=== PATIENT | female | born 1975 | race Caucasian/White ===

== ENCOUNTER 2016-06-21 06:18 | Emergency (ER) | payer SELFPAY ==
[2016-06-21 06:25] VITALS: BP 110/63
--- NOTE | 2016-06-21 07:49 | ER Document Report ---
ED Skin Rash/Insect Bite/Abscs - General Mode of Arrival: Ambulatory Information source: Patient TRAVEL OUTSIDE OF THE [place] IN LAST 30 DAYS: No - HPI Patient complains to provider of: Skin rash/lesion Onset: Last week Quality of pain: Burning - General Chief Complaint: Rash Stated Complaint: RASH Notes: Patient is a 41 year old female who presents to the emergency department complaining of a rash onset one week ago. Patient reports the rash is located on the right side of her face and on her upper back and is not healing. Patient complains that the red bumps are painful, burn, and leak water. Patient also states that her boyfriend has the same rash on his back. (GARRETT BARRERA) - Related Data Allergies/Adverse Reactions: No Known Allergies Allergy (Verified 06/21/16 06:28) Past Medical History - General Information source: Patient - Social History Smoking Status: Current Every Day Smoker Chew tobacco use (# tins/day): No Frequency of alcohol use: None Drug Abuse: None Family History: Reviewed & Not Pertinent Patient has suicidal ideation: No Patient has homicidal ideation: No Pulmonary Medical History: Reports: Hx COPD Renal/ Medical History: Reports: Hx Ectopic GI Medical History: Reports: Hx Hepatitis - C Psychiatric Medical History: Reports: Hx Anxiety, Hx Attention Deficit Hyperactivity Disorder, Hx Depression Infectious Medical History: Reports: Hx Hepatitis - C Past Surgical History: Reports: Hx Breast Surgery - augmentation/implants - Immunizations Immunizations up to date: Yes Hx Diphtheria, Pertussis, Tetanus Vaccination: Yes Review of Systems - Review of Systems Constitutional: No symptoms reported EENT: No symptoms reported Cardiovascular: No symptoms reported Respiratory: No symptoms reported Gastrointestinal: No symptoms reported Genitourinary: No symptoms reported Female Genitourinary: No symptoms reported Musculoskeletal: No symptoms reported Skin: See HPI, Rash Hematologic/Lymphatic: No symptoms reported Neurological/Psychological: No symptoms reported -: Yes All other systems reviewed and negative Physical Exam - Vital signs Interpretation: Normal - General General appearance: Appears well, Alert - HEENT Head: Normocephalic, Atraumatic - Respiratory Respiratory status: No respiratory distress - Extremities General upper extremity: Normal inspection, Normal ROM, Normal strength General lower extremity: Normal inspection, Normal ROM, Normal strength, Normal weight bearing - Neurological Neuro grossly intact: Yes Cognition: Normal Orientation: AAOx4 [place] Coma Scale Eye Opening: Spontaneous [place] Coma Scale Verbal: Oriented [place] Coma Scale Motor: Obeys Commands [place] Coma Scale Total: 15 Speech: Normal Motor strength normal: LUE, RUE, LLE, RLE - Psychological Associated symptoms: Normal affect, Normal mood - Skin Skin Temperature: Warm Skin Moisture: Dry Skin irregularity: Rash - Rash on face is reddish, firm, tender, and appears to have been scratched. Patient's back has red, slightly raised, indurated, and tender bumps that look like folliculitis that has not abscessed yet. - Vital signs Vitals: Temp Pulse Resp BP Pulse Ox 98.6 F 98 12 110/63 100 06/21/16 06:23 06/21/16 06:23 06/21/16 06:23 06/21/16 06:23 06/21/16 06:23 (JAREN LEES) (GARRETT BARRERA) Discharge - Discharge Clinical Impression: Folliculitis Additional Instructions: Folliculitis: You have a skin infection that looks like folliculitis. This occurs when bacteria infect the hair follicles of the skin. Typically, redness and small pustules are found where hair shafts enter the skin. Allergy, surface irritation, shaving, and exposure to hot tubs predispose to folliculitis. The usual treatment is antibiotics. Warm compresses are often used. To avoid future episodes of folliculitis, you must identify (if possible) the factors which allowed this infection to start. If you develop increasing pain, swelling, fever, or red streaks, call the doctor or return for re-evaluation. TAKE THE MEDICATIONS PRESCRIBED. TRY BENADRYL FOR ITCHING. FOLLOW UP WITH A LOCAL MEDICAL DOCTOR IF NOT IMPROVING. Prescriptions: Doxycycline Hyclate 100 mg PO BID #20 tablet Scribe Attestation: 06/21/16 07:53 I personally performed the services described in the documentation, reviewed and edited the documentation which was dictated to the scribe in my presence, and it accurately records my words and actions. (JAREN LEES) Scribe Documentation - Scribe Written by Scribe:: BRIANDA LUNDYIBE 06/21/16 0807 Acting as scribe for: Dr. Lees (GARRETT BARRERA)
== END 2016-06-21 08:10 | disposition home or self-care (01) ==
LOC: ER 06:18
DX: L73.9 Follicular disorder, unspecified (principal); F17.200 Nicotine dependence, unspecified, uncomplicated; J44.9 Chronic obstructive pulmonary disease, unspecified
CPT/HCPCS: 99282

== ENCOUNTER 2016-07-23 00:39 | Emergency (ER) | payer SELFPAY ==
[2016-07-23 01:14] VITALS: BP 120/61
--- NOTE | 2016-07-23 04:33 | ER Document Report ---
ED Skin Rash/Insect Bite/Abscs - General Chief Complaint: Rash Stated Complaint: ANKLE,FOOT SWOLLEN/RASH Notes: Patient is a 41-year-old female that comes emergency department for chief complaint of a rash over her forehead, side of her face, and shoulders mainly that has been present for over a month intermittently, she states that areas are now healing and itching, she states new areas appear to be coming up. She also states that she has a reddish appearance of her lower extremities which are slightly tender in appearance. Past medical history of hepatitis C. Patient has been on doxycycline but states this did not agree with her stomach and she had difficulty taking it. TRAVEL OUTSIDE OF THE [place] IN LAST 30 DAYS: No - Related Data Allergies/Adverse Reactions: No Known Allergies Allergy (Verified 06/21/16 06:28) Past Medical History - General Information source: Patient - Social History Smoking Status: Never Smoker Frequency of alcohol use: None Drug Abuse: None Lives with: Family Family History: Reviewed & Not Pertinent Patient has suicidal ideation: No Patient has homicidal ideation: No Pulmonary Medical History: Reports: Hx COPD Renal/ Medical History: Reports: Hx Ectopic . Denies: Hx Peritoneal Dialysis GI Medical History: Reports: Hx Hepatitis - C Psychiatric Medical History: Reports: Hx Anxiety, Hx Attention Deficit Hyperactivity Disorder, Hx Depression Infectious Medical History: Reports: Hx Hepatitis - C Past Surgical History: Reports: Hx Breast Surgery - augmentation/implants - Immunizations Immunizations up to date: Yes Hx Diphtheria, Pertussis, Tetanus Vaccination: Yes Review of Systems - Review of Systems Constitutional: No symptoms reported EENT: No symptoms reported Cardiovascular: No symptoms reported Respiratory: No symptoms reported Gastrointestinal: No symptoms reported Genitourinary: No symptoms reported Female Genitourinary: No symptoms reported Musculoskeletal: No symptoms reported Skin: See HPI Hematologic/Lymphatic: No symptoms reported Neurological/Psychological: No symptoms reported Physical Exam - Vital signs Vitals: Temp Pulse Resp BP Pulse Ox 97.9 F 100 18 120/61 100 07/23/16 01:13 07/23/16 01:13 07/23/16 01:13 07/23/16 01:13 07/23/16 01:13 Interpretation: Normal - General General appearance: Appears well, Alert In distress: None - HEENT Head: Normocephalic, Atraumatic Eyes: Normal Pupils: PERRL - Respiratory Respiratory status: No respiratory distress Chest status: Nontender Breath sounds: Normal Chest palpation: Normal - Cardiovascular Rhythm: Regular Heart sounds: Normal auscultation Murmur: No - Abdominal Inspection: Normal Distension: No distension Bowel sounds: Normal Tenderness: Nontender Organomegaly: No organomegaly - Back Back: Normal, Nontender - Extremities General upper extremity: Normal inspection, Nontender, Normal color, Normal ROM , Normal temperature General lower extremity: Normal inspection, Nontender, Normal color, Normal ROM , Normal temperature, Normal weight bearing. No: Iris's sign - Neurological Neuro grossly intact: Yes Cognition: Normal Orientation: AAOx4 [place] Coma Scale Eye Opening: Spontaneous [place] Coma Scale Verbal: Oriented [place] Coma Scale Motor: Obeys Commands [place] Coma Scale Total: 15 Speech: Normal Motor strength normal: LUE, RUE, LLE, RLE Sensory: Normal - Psychological Associated symptoms: Normal affect, Normal mood - Skin Skin Temperature: Warm Skin Moisture: Dry Skin Color: Normal Skin irregularity: other - erythematous and slightly elevated circular areas over the forehead, no vesicles, pustules, induration, fluctuance. Some excoriation, a few healing scabs. Mild erythema over the shoulders, no significant abnormality. Lower extremity with a few patchy reddish areas, otherwise unremarkable Course - Re-evaluation Re-evalutation: Area over the face appears to be infectious/bacterial to some degree with no fluctuance or induration suggesting abscess, questionable lower extremity vasculitis which is very mild, no other abnormalities noted. Patient referred to dermatology. - Vital Signs Vital signs: Temp Pulse Resp BP Pulse Ox 97.9 F 100 18 120/61 100 07/23/16 01:13 07/23/16 01:13 07/23/16 01:13 07/23/16 01:13 07/23/16 01:13 Discharge - Discharge Clinical Impression: Rash, Skin infection Condition: Stable Disposition: HOME, SELF-CARE Additional Instructions: Physical examination suggests infectious component on the face/shoulder, lower extremity appears to be possible vasculitis. Use the ointment as directed, take Bactrim as directed, follow up with dermatology for additional management. Return to emergency department for any concerning or worsening symptoms. Prescriptions: Mupirocin [Bactroban 2% Ointment 22 gm] 1 applic TP TID #1 tube Sulfamethoxazole/Trimethoprim [Bactrim Ds Tablet] 1 each PO BID #14 tablet Referrals: ARLYN HEATH DO [ACTIVE STAFF] - Follow up as needed
== END 2016-07-23 05:19 | disposition home or self-care (01) ==
LOC: ER 00:39
DX: R21 Rash and other nonspecific skin eruption (principal); L08.9 Local infection of the skin and subcutaneous tissue, unspecified; J44.9 Chronic obstructive pulmonary disease, unspecified
CPT/HCPCS: 99282

== ENCOUNTER 2016-08-22 12:30 | Emergency (ER) | payer SELFPAY ==
--- NOTE | 2016-08-22 12:50 | ER Document Report ---
ED Medical Screen (RME) - General Stated Complaint: FEVER, THROAT PAIN Time seen by provider: 12:48 Mode of Arrival: Ambulatory Information source: Patient Notes: 41-year-old female presents to ED for swelling to the hands and feet for a while. She states she's had fever cough cold bodyaches since Friday with a sore throat. She states she is having flulike symptoms. Last menstrual period 08/01/2016 I have greeted and performed a rapid initial assessment of this patient. A comprehensive ED assessment and evaluation of the patient, analysis of test results and completion of medical decision making process will be conducted by an additional ED providers. TRAVEL OUTSIDE OF THE [place] IN LAST 30 DAYS: No - Related Data Allergies/Adverse Reactions: No Known Allergies Allergy (Verified 06/21/16 06:28) Past Medical History Pulmonary Medical History: Reports: Hx COPD Renal/ Medical History: Reports: Hx Ectopic . Denies: Hx Peritoneal Dialysis GI Medical History: Reports: Hx Hepatitis - C Psychiatric Medical History: Reports: Hx Anxiety, Hx Attention Deficit Hyperactivity Disorder, Hx Depression Infectious Medical History: Reports: Hx Hepatitis - C Past Surgical History: Reports: Hx Breast Surgery - augmentation/implants - Immunizations Immunizations up to date: Yes Hx Diphtheria, Pertussis, Tetanus Vaccination: Yes Physical Exam - Vital signs Vitals: Temp Pulse Resp BP Pulse Ox 99.5 F 112 H 16 103/60 98 08/22/16 12:44 08/22/16 12:44 08/22/16 12:44 08/22/16 12:44 08/22/16 12:44 Course - Vital Signs Vital signs: Temp Pulse Resp BP Pulse Ox 99.5 F 112 H 16 103/60 98 08/22/16 12:44 08/22/16 12:44 08/22/16 12:44 08/22/16 12:44 08/22/16 12:44
--- NOTE | 2016-08-22 14:25 | ER Document Report ---
ED General - General Chief Complaint: Sore Throat Stated Complaint: FEVER, THROAT PAIN Mode of Arrival: Ambulatory Information source: Patient Notes: Patient is a 41-year-old female who presents with 4 day history of fever (Tmax 100.2), sore throat productive cough with mucus production, bilateral ear pain. She also reports her hands and feet are swelling. Denies any nausea vomiting diarrhea or dysuria. She has tried [id number] cold and flu medications and Tylenol. These have not provided relief. She is a smoker. TRAVEL OUTSIDE OF THE [place] IN LAST 30 DAYS: No - Related Data Allergies/Adverse Reactions: No Known Allergies Allergy (Verified 08/22/16 12:50) Past Medical History - General Information source: Patient - Social History Smoking Status: Current Every Day Smoker Chew tobacco use (# tins/day): No Frequency of alcohol use: None Drug Abuse: None Family History: Reviewed & Not Pertinent Patient has suicidal ideation: No Patient has homicidal ideation: No Pulmonary Medical History: Reports: Hx COPD Renal/ Medical History: Reports: Hx Ectopic . Denies: Hx Peritoneal Dialysis GI Medical History: Reports: Hx Hepatitis - C Psychiatric Medical History: Reports: Hx Anxiety, Hx Attention Deficit Hyperactivity Disorder, Hx Depression Infectious Medical History: Reports: Hx Hepatitis - C Past Surgical History: Reports: Hx Breast Surgery - augmentation/implants - Immunizations Immunizations up to date: Yes Hx Diphtheria, Pertussis, Tetanus Vaccination: Yes Review of Systems - Review of Systems Constitutional: See HPI EENT: See HPI Cardiovascular: No symptoms reported Respiratory: See HPI Gastrointestinal: No symptoms reported Genitourinary: No symptoms reported Female Genitourinary: No symptoms reported Musculoskeletal: No symptoms reported Skin: No symptoms reported Hematologic/Lymphatic: No symptoms reported Neurological/Psychological: No symptoms reported Physical Exam - Vital signs Vitals: Temp Pulse Resp BP Pulse Ox 99.5 F 112 H 16 103/60 98 08/22/16 12:44 08/22/16 12:44 08/22/16 12:44 08/22/16 12:44 08/22/16 12:44 Interpretation: Tachycardic - Notes Notes: PHYSICAL EXAM: CONSTITUTIONAL: Alert and oriented, well-appearing and in no acute distress. non -toxic in appearance. HENT: Normocephalic, atraumatic. Ear canals without erythema or foreign body, TMs pearly oliva with good bony landmarks. Nares clear without erythema, septal hematoma or deviation, airway patent. Oropharynx clear without erythema, tonsilar exudate or malocclusion. Trachea midline. Uvula midline. Moist mucous membranes. EYES: Pupils equal round and reactive to light, EOM intact. Sclera anicteric, conjunctiva are normal. No entrapment. NECK: supple without lymphadenopathy. No midline tenderness or paraspinous muscle spasms. No step-offs or deformities. ROM intact. HEART: Regular rate and rhythm without murmurs. LUNGS: CTAB and equal. No wheezes, rales or rhonchi. GI: Normactive bowel sounds. Nontender, non-distended. No organomegaly. no CVAT. EXTREMITIES: Normal range of motion, no pitting edema. No cyanosis. Cap Refill < 3 seconds. NEURO: Cranial nerves grossly intact. Normal sensory/motor exams. PSYCH: Normal mood, normal affect. SKIN: Warm and dry. Normal turgor. No rashes or lesions noted. Course - Re-evaluation Re-evalutation: 08/22/16 14:53 Patient seen and examined. No respiratory distress, non-toxic in appearance. Exam consistent with viral URI, lungs CTAB. Negative influenza and rapid strep swabs. Will treat symptomatically. Discharged home in stable condition, follow- up with PMD. - Vital Signs Vital signs: Temp Pulse Resp BP Pulse Ox 99.5 F 112 H 16 103/60 98 08/22/16 12:44 08/22/16 12:44 08/22/16 12:44 08/22/16 12:44 08/22/16 12:44 Discharge - Discharge Clinical Impression: Viral URI with cough Condition: Stable Disposition: HOME, SELF-CARE Additional Instructions: UPPER RESPIRATORY ILLNESS: You have a viral infection of the respiratory passages -- a "cold." This common infection causes nasal congestion, drainage, and often sore throat and cough. It is highly contagious. The disease usually lasts about 10 to 14 days. There is no "cure" for the viral infection -- it must run its course. If there is a complication, such as bacterial infection in the nose, sinuses, middle ear, or bronchial tubes, antibiotics may be required. The antibiotics won't affect the virus. Drink plenty of fluids. A humidifier may help. An expectorant medication or decongestant may make you more comfortable. Use acetaminophen or ibuprofen for fever or aches. See the doctor if fever persists over two days, if there is any significant worsening of your symptoms, or if you simply fail to improve as expected. BRONCHOSPASM: You have tightness in the bronchial tubes, called bronchospasm. This often occurs with bronchial infections. Allergies, inhaled chemicals, and polluted or cold air can also provoke bronchospasm. It's more likely in patients with asthma in the family. Emergency treatment of bronchospasm may include adrenaline shots or bronchodilator aerosol. You may feel lightheaded and have a rapid pulse for an hour or two. Rest and get plenty of fluids. At home, we'll treat you with a bronchodilator inhaler. Antibiotics and corticosteroids may be required for some patients. Until you recover, avoid chemical fumes, dusts, pollens, and exercising in very cold or dry air. If you smoke, stop now!! If you develop a fever, increased wheezing, chest pain, or severe shortness of breath, you should contact the doctor immediately. DECONGESTANT MEDICATION: A decongestant medicine has been prescribed. Often this medicine is combined in the same tablet with an antihistamine or expectorant. This type of medicine is helpful in treating a bad cold or sinus condition, as well as in treatment of the nasal congestion of hay fever. It is not of much benefit for lung infections. Decongestant medicines are related to stimulants. They can cause an increase in blood pressure and heart rate. Persons with heart disease and high blood pressure should not take decongestants without discussing this with the physician. If you develop palpitations, chest pain, headache, or tremors, stop the medicine and consult your physician. COUGH-SUPPRESSANT & EXPECTORANT MEDICATION: You are to use a cough medication as needed for relief of symptoms. This medicine is a combination of an expectorant (to make the mucous thinner and more easily "coughed up") and a cough suppressant (to reduce the frequency of coughing). The cough-suppressant medicine is related to narcotics. You may experience mild nausea and sleepiness. Some patients who are very sensitive to narcotics may have stomach pain from this medicine. Taking the medicine with food reduces these side effects. Do not drive or work with machinery until you know how this medicine affects you. The expectorant should have no side effects. Iodine-containing expectorants (such as organidin) should not be taken by persons with active thyroid disease unless approved by your doctor. Call the doctor if you develop shortness of breath, hives, rash, itching, lightheadedness, or severe nausea and vomiting. USE OF ACETAMINOPHEN (Tylenol): Acetaminophen may be taken for pain relief or fever control. It's much safer than aspirin, offering a wider range of "safe" dosages. It is safe during . Some brand names are Tylenol, Panadol, Datril, Anacin 3, Tempra, and Liquiprin. Acetaminophen can be repeated every four hours. The following are maximum recommended dosages: >89 pounds or adults 650 mg to 900 mg Acetaminophen can be repeated every four hours. Maximum dose not to exceed 4000 mg a day. SMOKING: If you smoke, you should stop smoking. The tar and chemicals in cigarette smoke are harmful. Smoking has been shown to cause: emphysema chronic bronchitis lung cancer mouth and throat cancer stomach and pancreas cancer premature aging defects In addition, smoking increases ear and lung infections in children of smokers. Antibiotic Therapy You have been given an antibiotic prescription. It's important that you take all the medication, unless instructed otherwise by your physician. Failure to complete the entire course can result in relapse of your condition. Common side effects of antibiotics include nausea, intestinal cramping, or diarrhea. Women may develop vaginal yeast infections, and babies can get yeast (thrush) in the mouth following the use of antibiotics. Contact your physician if you develop significant side effects from this medication. Allergy to this antibiotic can result in hives, wheezing, faintness, or itching. If symptoms of allergy occur, stop the medication and call the doctor. FOLLOW-UP CARE: If you have been referred to a physician for follow-up care, call the physician s office for an appointment as you were instructed or within the next two days. If you experience worsening or a significant change in your symptoms, notify the physician immediately or return to the Emergency Department at any time for re-evaluation. Prescriptions: Pseudoephedrine HCl [Sudafed] 30 mg PO Q6HP PRN #8 tablet PRN Reason: Guaifenesin/D-Methorphan Hb [Guaifenesin-Dextromethorph Tab] 1 each PO Q12HP PRN #8 tab.sr.12h PRN Reason: Cough Albuterol Sulfate [Proair HFA Inhalation Aerosol 8.5 gm MDI] 2 puff IH Q4H PRN # 1 mdi PRN Reason: Amox Tr/Potassium Clavulanate [Augmentin 875-125 Tablet] 1 tab PO BID 10 Days Forms: Return to Work
[2016-08-22 15:17] VITALS: BP 115/64
== END 2016-08-22 15:17 | disposition home or self-care (01) ==
LOC: ER 12:30
DX: J06.9 Acute upper respiratory infection, unspecified (principal); B34.9 Viral infection, unspecified; R05 Cough; J02.9 Acute pharyngitis, unspecified; R50.9 Fever, unspecified; R07.0 Pain in throat; F17.200 Nicotine dependence, unspecified, uncomplicated
CPT/HCPCS: 87070; 87804; 87880; 99283

== ENCOUNTER 2017-05-30 10:55 | Emergency (ER) | payer SELFPAY ==
--- NOTE | 2017-05-30 12:10 | ER Document Report ---
ED General - General Mode of Arrival: Ambulatory Information source: Patient TRAVEL OUTSIDE OF THE U.S. IN LAST 30 DAYS: No <RUCHI SAGASTUME - Last Filed: 05/30/17 12:58> <ADRIEN PUENTES - Last Filed: 05/30/17 15:20> - General Chief Complaint: Headache Stated Complaint: HEADACHE,BODY ACHES Time Seen by Provider: 05/30/17 11:45 Notes: Patient is a 42 year old female with a history of Hepatitis C presents to the emergency department complaining of worsening fatigue, inability to sleep and bilateral lower extremity pain and swelling onset 3 months ago. Patient states that she has a hard time sleeping at night due to her leg pain. Patient is currently taking Subutex 10 mg daily. (RUCHI SAGASTUME) - Related Data Allergies/Adverse Reactions: No Known Allergies Allergy (Verified 05/30/17 10:56) Past Medical History - Social History Smoking Status: Current Every Day Smoker Chew tobacco use (# tins/day): No Frequency of alcohol use: None Drug Abuse: None Family History: Reviewed & Not Pertinent Patient has suicidal ideation: No Patient has homicidal ideation: No Pulmonary Medical History: Reports: Hx COPD Renal/ Medical History: Reports: Hx Ectopic . Denies: Hx Peritoneal Dialysis GI Medical History: Reports: Hx Hepatitis - C Psychiatric Medical History: Reports: Hx Anxiety, Hx Attention Deficit Hyperactivity Disorder, Hx Depression Infectious Medical History: Reports: Hx Hepatitis - C Past Surgical History: Reports: Hx Breast Surgery - augmentation/implants - Immunizations Immunizations up to date: Yes Hx Diphtheria, Pertussis, Tetanus Vaccination: Yes <RUCHI SAGASTUME - Last Filed: 05/30/17 12:58> Physical Exam <RUCHI SAGASTUME - Last Filed: 05/30/17 12:58> <ADRIEN PUENTES - Last Filed: 05/30/17 15:20> - Vital signs Vitals: Temp Pulse Resp BP Pulse Ox 98.8 F 86 20 108/60 99 05/30/17 11:06 05/30/17 11:06 05/30/17 11:06 05/30/17 11:06 05/30/17 11:06 - Notes Notes: GENERAL: Alert, interacts well. No acute distress. HEAD: Normocephalic, atraumatic. EYES: Pupils equal, round, and reactive to light. Extraocular movements intact. ENT: Oral mucosa moist, tongue midline. NECK: Full range of motion. Supple. Trachea midline. LUNGS: Clear to auscultation bilaterally, no wheezes, rales, or rhonchi. No respiratory distress. HEART: Regular rate and rhythm. No murmurs, gallops, or rubs. EXTREMITIES: Moves all 4 extremities spontaneously. NEUROLOGICAL: Alert and oriented x3. Normal speech. PSYCH: Normal affect, normal mood. SKIN: Warm, dry, normal turgor. No rashes or lesions noted. (RUCHI SAGASTUME) Course - Laboratory Result Diagrams: 05/30/17 12:23 05/30/17 12:23 <RUCHI SAGASTUME - Last Filed: 05/30/17 12:58> - Laboratory Result Diagrams: 05/30/17 12:23 05/30/17 12:23 <ADRIEN PUENTES - Last Filed: 05/30/17 15:20> - Re-evaluation Re-evalutation: 05/30/17 13:43 CBC unremarkable, coags normal, CMP shows low glucose, she will be fed, AST and ALT are both mildly elevated but no evidence of an acute flare from hepatitis C. Patient is recommended to follow-up with gastroenterology for her hepatitis C. Cardiac enzymes negative, thyroid functions normal, patient has a urinary tract infection with nitrites and small leukocyte esterase, this is somewhat surprising as she has no symptoms of dysuria however given her fatigue I do think it is worthwhile to treat. (ADRIEN PUENTES) - Vital Signs Vital signs: Temp Pulse Resp BP Pulse Ox 98.4 F 69 18 112/63 99 05/30/17 14:08 05/30/17 14:08 05/30/17 14:08 05/30/17 14:08 05/30/17 14:08 - Laboratory Laboratory results interpreted by me: 05/30/17 05/30/17 05/30/17 12:23 12:23 12:23 Seg Neutrophils % 40.0 L Glucose 56 L AST 136 H ALT 132 H Urine Nitrite POSITIVE H Urine Urobilinogen 4.0 H Ur Leukocyte Esterase SMALL H Discharge <RUCHI SAGASTUME - Last Filed: 05/30/17 12:58> <ADRIEN PUENTES - Last Filed: 05/30/17 15:20> - Discharge Clinical Impression: Fatigue Qualifiers: Fatigue type: chronic, unspecified Qualified Code(s): R53.82 - Chronic fatigue , unspecified UTI (urinary tract infection) Qualifiers: Urinary tract infection type: acute cystitis Hematuria presence: without hematuria Qualified Code(s): N30.00 - Acute cystitis without hematuria Hepatitis C Qualifiers: Viral hepatitis chronicity: chronic Hepatic coma status: without hepatic coma Qualified Code(s): B18.2 - Chronic viral hepatitis C Condition: Stable Disposition: HOME, SELF-CARE Additional Instructions: Today your a mild urinary tract infection. Your thyroid studies were normal. Your liver enzymes are very slightly elevated however this is not severe enough to cause her fatigue. It is very important that she continue to follow-up with her primary care physician as an outpatient. We were not able to find any reversible causes of fatigue today. It may be worthwhile to start taking a magnesium supplement 400 mg in the evening to help with your leg cramps. Forms: Return to Work Referrals: BARI MENENDEZ MD [COMMUNITY BASED STAFF] - Follow up as needed Scribe Attestation: 05/30/17 15:20 I personally performed the services described in the documentation, reviewed and edited the documentation which was dictated to the scribe in my presence, and it accurately records my words and actions. (ADRIEN PUENTES) Scribe Documentation - Scribe Written by Gibson:: Gibson Negron, 05/30/2017 12:23 acting as scribe for :: Nataliya <RUCHI SAGASTUME - Last Filed: 05/30/17 12:58>
[2017-05-30 12:43] LABS: ABSOLUTE EOSINOPHILS # (AUTO) 0.2 10^3/uL (0.0-0.6); ABSOLUTE LYMPHOCYTES (AUTO) 2.4 10^3/uL (0.5-4.7); ABSOLUTE MONOCYTES (AUTO) 0.6 10^3/uL (0.1-1.4); ABSOLUTE NEUT (AUTO) 2.2 10^3/uL (1.7-8.2); BASOPHILS % (AUTO) 0.7 % (0-2); EOSINOPHILS % (AUTO) 3.1 % (0-6); HEMATOCRIT 40.4 % (36.0-47.0); HEMOGLOBIN 13.7 g/dL (12.0-15.5); HGB HCT DIFFERENCE 0.7; LYMPHOCYTES % (AUTO) 44.4 % (13-45); MEAN CORPUSCULAR HEMOGLOBIN 28.9 pg (27.0-33.4); MEAN CORPUSCULAR VOLUME 85 fl (80-97); MONOCYTES % (AUTO) 11.8 % (3-13); RED BLOOD COUNT 4.74 10^6/uL (3.72-5.28); RED CELL DISTRIBUTION WIDTH 13.4 % (11.5-14.0); WHITE BLOOD COUNT 5.4 10^3/uL (4.0-10.5)
[2017-05-30 12:50] LABS: PROTHROMBIN TIME 13.1 SEC (11.4-15.4)
[2017-05-30 12:53] LABS: APPEARANCE,URINE SLIGHTLY-CLOUDY; BILIRUBIN,URINE NEGATIVE (NEGATIVE); CALCIUM OXALATE CRYSTALS,URINE TOO NUMEROUS TO CNT /HPF; GLUCOSE, URINE NEGATIVE (NEGATIVE); KETONES,URINE NEGATIVE (NEGATIVE); LEUKOCYTE ESTERASE,URINE SMALL (NEGATIVE); NITRITE,URINE POSITIVE (NEGATIVE); PROTEIN,URINE NEGATIVE (NEGATIVE); URINE SPECIFIC GRAVITY 1.009
[2017-05-30] MEDS ORDERED: KETOROLAC TROMETHAMINE 60 MG/2 ML SDV IM ONE (12:57)
--- NOTE | 2017-05-30 12:57 | EKG REPORT ---
SEVERITY:- NORMAL ECG - SINUS RHYTHM : Confirmed by: Addi Maldonado MD 30-May-2017 12:56:25
[2017-05-30 13:04] LABS: ALANINE AMINOTRANSFERASE 132 U/L (9-52); ALBUMIN 4.5 g/dL (3.5-5.0); ALKALINE PHOSPHATASE 74 U/L (38-126); ANION GAP 11 (5-19); ASPARTATE AMINO TRANSFERASE 136 U/L (14-36); BILIRUBIN,DIRECT 0.3 mg/dL (0.0-0.4); BILIRUBIN,TOTAL 0.5 mg/dL (0.2-1.3); BLOOD UREA NITROGEN 11 mg/dL (7-20); CALCIUM 9.5 mg/dL (8.4-10.2); CARBON DIOXIDE 29 mmol/L (22-30); CHLORIDE 101 mmol/L (98-107); CREATINE KINASE 32 U/L (30-135); CREATININE RESULT 0.67 mg/dL (0.52-1.25); GLUCOSE 56 mg/dL (75-110); POTASSIUM 4.1 mmol/L (3.6-5.0)
[2017-05-30 13:15] LABS: CREATINE KINASE MB 0.32 ng/mL (<4.55)
[2017-05-30 13:16] LABS: TROPONIN I < 0.012 ng/mL
[2017-05-30 13:21] LABS: FREE T3 3.13 pg/mL (2.77-5.27)
[2017-05-30 13:35] LABS: THYROID STIMULATING HORMONE 0.62 uIU/mL (0.47-4.68)
[2017-05-30 14:13] VITALS: BP 112/63
== END 2017-05-30 14:08 | disposition home or self-care (01) ==
LOC: ER 10:55
DX: N30.00 Acute cystitis without hematuria (principal); B18.2 Chronic viral hepatitis C; R53.82 Chronic fatigue, unspecified; R51 Headache; M79.1 Myalgia; M79.604 Pain in right leg; M79.605 Pain in left leg; F17.200 Nicotine dependence, unspecified, uncomplicated
CPT/HCPCS: 93005; 99284; 96372; 36415; 87086; 84439; 82553; 82550; 84443; 85025; 85610; 81025; 80053; 81001; 84484; 84481; 93010; J1885

== ENCOUNTER 2017-06-02 09:57 | Emergency (ER) | payer SELFPAY ==
[2017-06-02 10:07] VITALS: BP 114/62
[2017-06-02] MEDS ORDERED: KETOROLAC TROMETHAMINE 60 MG/2 ML SDV IM ONE (10:31)
--- NOTE | 2017-06-02 10:32 | ER Document Report ---
ED General - General Chief Complaint: Leg Pain Stated Complaint: LEG PAIN Time Seen by Provider: 06/02/17 10:15 Mode of Arrival: Ambulatory Information source: Patient Notes: 42-year-old female history of hepatitis C presents with complaints of bilateral leg pain. Patient notes she was seen here a few days prior and received a Toradol injection and noted significant improvement of her legs. Patient requests another injection. Patient denies any other complaints at this time TRAVEL OUTSIDE OF THE [place] IN LAST 30 DAYS: No - HPI Onset: Last week Onset/Duration: Intermittent Quality of pain: Cramping Severity: Mild Pain Level: 1 Associated symptoms: Other Exacerbated by: Walking Relieved by: Denies Similar symptoms previously: No Recently seen / treated by doctor: No - Related Data Allergies/Adverse Reactions: No Known Allergies Allergy (Verified 06/02/17 09:59) Past Medical History - Social History Smoking Status: Current Every Day Smoker Cigarette use (# per day): Yes Chew tobacco use (# tins/day): No Smoking Education Provided: No Family History: Reviewed & Not Pertinent Pulmonary Medical History: Reports: Hx COPD Renal/ Medical History: Reports: Hx Ectopic . Denies: Hx Peritoneal Dialysis GI Medical History: Reports: Hx Hepatitis - C Psychiatric Medical History: Reports: Hx Anxiety, Hx Attention Deficit Hyperactivity Disorder, Hx Depression Infectious Medical History: Reports: Hx Hepatitis - C Past Surgical History: Reports: Hx Breast Surgery - augmentation/implants - Immunizations Immunizations up to date: Yes Hx Diphtheria, Pertussis, Tetanus Vaccination: Yes Review of Systems - Review of Systems Notes: REVIEW OF SYSTEMS: CONSTITUTIONAL : Denies fever, chills, or sweats. Denies recent illness. EENT: Denies eye, ear, throat, or mouth pain or symptoms. Denies nasal or sinus congestion or discharge. Denies throat, tongue, or mouth swelling or difficulty swallowing. CARDIOVASCULAR: Denies chest pain. Denies palpitations or racing or irregular heart beat. Denies ankle edema. RESPIRATORY: Denies cough, cold, or chest congestion. Denies shortness of breath, difficulty breathing, or wheezing. GASTROINTESTINAL: Denies abdominal pain or distention. Denies nausea, vomiting , or diarrhea. Denies blood in vomitus, stools, or per rectum. Denies black, tarry stools. Denies constipation. GENITOURINARY: Denies difficulty urinating, painful urination, burning, frequency, blood in urine, or discharge. FEMALE GENITOURINARY: Denies vaginal bleeding, heavy or abnormal periods, irregular periods. Denies vaginal discharge or odor. MUSCULOSKELETAL: bilateral leg cramping SKIN: Denies rash, lesions or sores. HEMATOLOGIC : Denies easy bruising or bleeding. LYMPHATIC: Denies swollen, enlarged glands. NEUROLOGICAL: Denies confusion or altered mental status. Denies passing out or loss of consciousness. Denies dizziness or lightheadedness. Denies headache. Denies weakness or paralysis or loss of use of either side. Denies problems with gait or speech. Denies sensory loss, numbness, or tingling. Denies seizures. PSYCHIATRIC: Denies anxiety or stress. Denies depression, suicidal ideation, or homicidal ideation. ALL OTHER SYSTEMS REVIEWED AND NEGATIVE. PHYSICAL EXAMINATION: GENERAL: Well-appearing, well-nourished and in no acute distress. HEAD: Atraumatic, normocephalic. EYES: Pupils equal round and reactive to light, extraocular movements intact, conjunctiva are normal. ENT: Nares patent, oropharynx clear without exudates. Moist mucous membranes. NECK: Normal range of motion, supple without lymphadenopathy LUNGS: Breath sounds clear to auscultation bilaterally and equal. No wheezes rales or rhonchi. HEART: Regular rate and rhythm without murmurs ABDOMEN: Soft, nontender, nondistended abdomen. No guarding, no rebound. No masses appreciated. Female : deferred Musculoskeletal: Normal range of motion, no pitting or edema. No cyanosis. NEUROLOGICAL: Cranial nerves grossly intact. Normal speech, normal gait. Normal sensory, motor exams PSYCH: Normal mood, normal affect. SKIN: Warm, Dry, normal turgor, no rashes or lesions noted. Dictation was performed using [employer] voice recognition software Physical Exam - Vital signs Vitals: Temp Pulse Resp BP Pulse Ox 99.3 F 101 H 18 114/62 98 06/02/17 10:05 06/02/17 10:05 06/02/17 10:05 06/02/17 10:05 06/02/17 10:05 Course - Re-evaluation Re-evalutation: 06/02/17 15:53 pts examination is quite benign, at her request she was given toradol injection. She is only on sobutex at home. pt has no signs of rhabdo, did have a uti which iwill treat her for off previous ua. i did explain that she must follow up with pcp for further evaluation to determine the actual cause of her leg cramping as her previous labs were all normal. no signs of dvt, no risk factors noted After performing a Medical Screening Examination, I estimate there is LOW risk for malignant otitis media, mastoiditis, MENINGITIS, or ACUTE CORONARY SYNDROME , thus I consider the discharge disposition reasonable. I have reevaluated this patient multiple times and no significant life threatening changes are noted. The patient and I have discussed the diagnosis and risks, and we agree with discharging home to follow-up on an outpatient basis with the understanding that symptoms and presentations can change. We also discussed returning to the Emergency Department immediately if new or worsening symptoms occur. We have discussed the symptoms which are most concerning (e.g., high fevers, confusion) that necessitate immediate return. - Vital Signs Vital signs: Temp Pulse Resp BP Pulse Ox 99.3 F 101 H 18 114/62 98 06/02/17 10:05 06/02/17 10:05 06/02/17 10:05 06/02/17 10:05 06/02/17 10:05 Discharge - Discharge Clinical Impression: Bilateral thigh pain UTI (urinary tract infection) Qualifiers: Urinary tract infection type: acute cystitis Hematuria presence: without hematuria Qualified Code(s): N30.00 - Acute cystitis without hematuria Condition: Stable Disposition: HOME, SELF-CARE Instructions: Urinary Tract Infection ([facility]) Additional Instructions: Follow up with your physician tomorrow for further care or return to the ED IMMEDIATELY if symptoms worsen or new concerns occur. If you cannot afford to follow up with your primary care physician a list of low cost clinics have been provided at the end of your discharge papers as well. Prescriptions: Cephalexin Monohydrate [Keflex 500 mg Capsule] 500 mg PO BID 5 Days capsule
== END 2017-06-02 11:08 | disposition home or self-care (01) ==
LOC: ER 09:57
DX: M79.652 Pain in left thigh (principal); M79.651 Pain in right thigh; R25.2 Cramp and spasm; N30.00 Acute cystitis without hematuria; J44.9 Chronic obstructive pulmonary disease, unspecified; F17.210 Nicotine dependence, cigarettes, uncomplicated
CPT/HCPCS: 99283; 96372; J1885

== ENCOUNTER 2018-07-15 20:55 | Emergency (ER) | payer SELFPAY ==
[2018-07-16 01:55] VITALS: BP 116/77
--- NOTE | 2018-07-16 03:51 | ER Document Report ---
ED Eye Complaint - General Chief Complaint: Drainage from Eye Stated Complaint: LEFT EYE PAIN Time Seen by Provider: 07/16/18 03:51 Mode of Arrival: Ambulatory Information source: Patient Notes: HISTORY OF PRESENT ILLNESS: Patient is a 43-year-old female with no significant past medical history who presents with redness and drainage from the left eye. Location: Left eye Onset: Acute Provocation: Unknown Quality: Burning Radiation: None Severity: Moderate Timing: Constant Sick contacts: None known Associated symptoms: Denies fevers or chills, no swelling of the face REVIEW OF SYSTEMS: CONSTITUTIONAL : Denies fever or chills, no sweats. Denies recent illness. EENT: Positive for eye redness and drainage, denies throat or mouth pain, no sore throat. Denies nasal or sinus congestion. CARDIOVASCULAR: Denies chest pain. RESPIRATORY: Denies cough, cold, or chest congestion. Denies shortness of breath, difficulty breathing, or wheezing. GASTROINTESTINAL: Denies abdominal pain. Denies nausea, vomiting, or diarrhea. Denies constipation. GENITOURINARY: Denies difficulty urinating, painful urination, burning, frequency, or blood in urine. Denies vaginal bleeding, abnormal or irregular periods. MUSCULOSKELETAL: Denies neck or back pain or joint pain or swelling. SKIN: Denies rash or skin lesions. HEMATOLOGIC : Denies easy bruising or bleeding. LYMPHATIC: Denies swollen, enlarged glands. NEUROLOGICAL: Denies altered mental status or loss of consciousness. Denies headache. Denies weakness or paralysis or loss of use of either side. Denies problems with gait or speech. Denies sensory or motor loss. PSYCHIATRIC: Denies anxiety or stress or depression. All other systems reviewed and negative. PHYSICAL EXAMINATION: GENERAL: Well-appearing, well-nourished and in no acute distress. HEAD: Atraumatic, normocephalic. No scalp deformity, depression, or crepitance. EYES: Pupils are 3 mm and equal/round/reactive to light, extraocular movements intact, sclera anicteric. Left conjunctival injection with clear ecchymosis, no periorbital edema or erythema. ENT: Nares patent bilaterally, oropharynx clear without exudates or palatal petechia. Moist mucous membranes. No tonsil hypertrophy. NECK: Normal range of motion, supple without lymphadenopathy. LUNGS: Breath sounds present, equal, and clear to auscultation bilaterally. No wheezes, rales, or rhonchi. HEART: Regular rate and rhythm without murmurs, rubs, or gallops. 2+ peripheral pulses. Normal capillary refill. ABDOMEN: Soft, nontender, nondistended. Normoactive bowel sounds. No guarding, no rebound. No masses appreciated. BACK: Normal contour, no midline tenderness. Rectal exam deferred. PELVC: Deferred. EXTREMITIES: Normal range of motion, no pitting or edema. No cyanosis. NEUROLOGICAL: No focal neurological deficits. Moves all extremities spontaneously and on command. PSYCH: Normal mood, normal affect. No suicidal thoughts/ideations. No homocidal thoughts/ideations. No hallucinations. SKIN: Warm, dry, normal turgor, no rashes or lesions noted. ASSESSMENT AND PLAN: This patient is a 43-year-old female who presents with left eye pain and discharge which likely represents a viral etiology such as conjunctivitis. However, patient wears corrective lenses which complicates her presentation. 1. Will discharge home with return precautions and follow-up as needed. Patient voices both understanding and agreeing with the plan. 2. Will give prescription for floraquinolone drops as well as an ophthalmic anti-inflammatory for symptomatic relief. TRAVEL OUTSIDE OF THE [place] IN LAST 30 DAYS: No - Related Data Allergies/Adverse Reactions: No Known Allergies Allergy (Verified 07/15/18 20:56) Past Medical History - General Information source: Patient - Social History Smoking Status: Current Every Day Smoker Chew tobacco use (# tins/day): No Frequency of alcohol use: None Drug Abuse: None Lives with: Family Family History: Reviewed & Not Pertinent Patient has suicidal ideation: No Patient has homicidal ideation: No - Past Medical History Cardiac Medical History: Reports: None Pulmonary Medical History: Reports: Hx COPD EENT Medical History: Reports: None Neurological Medical History: Reports: None Endocrine Medical History: Reports: None Renal/ Medical History: Reports: Hx Ectopic . Denies: Hx Peritoneal Dialysis Malignancy Medical History: Reports: None GI Medical History: Reports: Hx Hepatitis - C Musculoskeletal Medical History: Reports None Skin Medical History: Reports None Psychiatric Medical History: Reports: Hx Anxiety, Hx Attention Deficit Hyperactivity Disorder, Hx Depression Traumatic Medical History: Reports: None Infectious Medical History: Reports: Hx Hepatitis - C Past Surgical History: Reports: Hx Breast Surgery - augmentation/implants - Immunizations Immunizations up to date: Yes Hx Diphtheria, Pertussis, Tetanus Vaccination: Yes Physical Exam - Vital signs Vitals: Temp Resp BP Pulse Ox 98.5 F 16 114/74 100 07/15/18 20:58 07/15/18 20:58 07/15/18 20:58 07/15/18 20:58 Course - Vital Signs Vital signs: Temp Pulse Resp BP Pulse Ox 98.0 F 60 18 116/77 98 07/16/18 01:54 07/16/18 01:54 07/16/18 01:54 07/16/18 01:54 07/16/18 01:54 Discharge - Discharge Clinical Impression: Viral conjunctivitis of left eye Condition: Good Disposition: HOME, SELF-CARE Instructions: Conjunctivitis ([facility]) Additional Instructions: You have been evaluated in the Emergency Department for pain and drainage to your left eye that is most likely viral, however could be bacterial given the fact that you wear contacts. Please follow-up with your primary physician as instructed in 1 week to be rechecked. Return to the Emergency Department if you experience vision changes or vision loss in her left eye, increased drainage or swelling around the eye, high fevers, or any other concerning symptoms. Prescriptions: Ketorolac Tromethamine 0.45% [Acuvail 0.45% Oph Soln 0.4 ml/Dropperette] 1 drop OU BID #1 bottle Polymyxin B Sulfate/Tmp [Polytrim Oph Soln 10 ml] 1 dose OP ASDIR PRN #1 bottle PRN Reason: Forms: Parent Work Note Print Language: Paraguayan
== END 2018-07-16 04:35 | disposition home or self-care (01) ==
LOC: ER 07-16 02:54
DX: B30.9 Viral conjunctivitis, unspecified (principal); F17.200 Nicotine dependence, unspecified, uncomplicated; J44.9 Chronic obstructive pulmonary disease, unspecified; Z86.19 Personal history of other infectious and parasitic diseases
CPT/HCPCS: 99282

== ENCOUNTER 2019-06-23 22:22 | Emergency (ER) | payer SELFPAY ==
[2019-06-23 22:42] VITALS: BP 122/74
[2019-06-23] MEDS ORDERED: HYDROCODONE/ACETAMINOPHEN 5-325 MG (6 TAB/ER DISP) PO PRN (23:10)
[2019-06-23] MEDS ORDERED: PENICILLIN V POTASSIUM 500 MG TABLET PO ONE (23:10)
--- NOTE | 2019-06-23 23:13 | ER Document Report ---
HPI - HPI Time Seen by Provider: 06/23/19 23:07 Context: Patient is a 44-year-old female who presents to the emergency department with a chief complaint of right upper dental pain. Patient reports this is been present since yesterday. Patient reports she has had a dental infection in the past. Patient reports she does not necessarily have a broken tooth but that 1 of her teeth are very tender to the type. Patient denies abscess. Patient reports she feels like the right side of her face is slightly swollen. Patient denies difficulty breathing or swallowing. Patient states that she did take ibuprofen 1 hour prior to arrival. Patient states that she really would just like some antibiotics. Patient would also like a referral to the [facility] clinic in the area she does not have health insurance. - REPRODUCTIVE Reproductive: DENIES: : Past Medical History - General Information source: Patient - Social History Smoking Status: Unknown if Ever Smoked Lives with: Parents Family History: Reviewed & Not Pertinent - Past Medical History Cardiac Medical History: Reports: None Pulmonary Medical History: Reports: Hx COPD EENT Medical History: Reports: None Neurological Medical History: Reports: None Endocrine Medical History: Reports: None Renal/ Medical History: Reports: Hx Ectopic . Denies: Hx Peritoneal Dialysis Malignancy Medical History: Reports: None GI Medical History: Reports: Hx Hepatitis - C Musculoskeletal Medical History: Reports None Skin Medical History: Reports None Psychiatric Medical History: Reports: Hx Anxiety, Hx Attention Deficit Hyperactivity Disorder, Hx Depression Traumatic Medical History: Reports: None Infectious Medical History: Reports: Hx Hepatitis - C Past Surgical History: Reports: Hx Breast Surgery - augmentation/implants - Immunizations Immunizations up to date: Yes Hx Diphtheria, Pertussis, Tetanus Vaccination: Yes Vertical Provider Document - CONSTITUTIONAL Agree With Documented VS: Yes Exam Limitations: No Limitations General Appearance: No Apparent Distress - INFECTION CONTROL TRAVEL OUTSIDE OF THE [place] IN LAST 30 DAYS: No - HEENT HEENT: Atraumatic, Normal ENT Exam, Normocephalic, PERRLA Mouth Diagram: 1 - Missing teeth 2 - Dental breakdown, no palpable abscess within the mouth, gum erythema. - NECK Neck: Normal Inspection - RESPIRATORY Respiratory: Breath Sounds Normal, No Respiratory Distress - CARDIOVASCULAR Cardiovascular: Regular Rate, Regular Rhythm - GI/ABDOMEN Gastrointestinal: Abdomen Soft, Abdomen Non-Tender, Normal Bowel Sounds - MUSCULOSKELETAL/EXTREMETIES Musculoskeletal/Extremeties: FROM - NEURO Level of Consciousness: Awake, Alert, Appropriate - DERM Integumentary: Warm, Dry, No Rash Course - Vital Signs Vital signs: Temp Pulse Resp BP Pulse Ox 97.5 F 80 16 122/74 100 06/23/19 22:40 06/23/19 22:40 06/23/19 22:40 06/23/19 22:40 06/23/19 22:40 Discharge - Discharge Clinical Impression: Pain, dental, Dental infection Condition: Stable Disposition: HOME, SELF-CARE Additional Instructions: *Today was in the emergency department for a possible dental infection. You will be placed on oral antibiotics to take to treat this infection. Ultimately do need to follow-up with a dentist. I have given you a referral to the [facility]. I know that you are only open certain days of the week so if you are unable to contact them tomorrow please keep trying to call. I am also giving you [place], take this only as needed for severe pain, do not drive or operate heavy machinery while on this medication. Ultimately the best medication will be the ibuprofen as this is a good anti-inflammatory. Take your antibiotics as prescribed for its full course even if you start to feel better. Please return to the emergency department if you develop any significant facial swelling, fever, difficulty breathing or swallowing or any new or worsening symptoms. Dental Infection or Abscess You have an infection, perhaps an abscess (pus formation) of the gum around one of your teeth, which is probably decayed. If there is an abscess, it may drain on its own or it may need to be opened or lanced. Severe swelling or drainage around a tooth usually means a deep dental abscess which usually requi res evaluation and treatment by a dentist or oral surgeon. Antibiotics may be prescribed while awaiting dental treatment. If you develop high fever with chills, worsening pain, or increasing swe lling in the area, see a dentist or oral surgeon immediately or return to the Emergency Department immediately. Prescriptions: Penicillin V Potassium [Penicillin Vk 500 mg Tablet] 500 mg PO BID #20 tablet Referrals: [facility] [Provider Group] - Follow up as needed
== END 2019-06-23 23:25 | disposition home or self-care (01) ==
LOC: ER 22:22
DX: K04.7 Periapical abscess without sinus (principal); J44.9 Chronic obstructive pulmonary disease, unspecified; Z86.19 Personal history of other infectious and parasitic diseases
CPT/HCPCS: 99282